=== PATIENT | female | born 1960 | race Caucasian/White ===

== ENCOUNTER 2021-06-07 02:34 | Day surgery (SDC) | payer BC, SELFPAY ==
[2021-05-24 15:54] VITALS: BMI 24.2
--- NOTE | 2021-06-06 13:00 | P.PNAN_ITS ---
Anes - Initial Pre Proc Eval Procedure: Operation Date: 06/07/21 10:30 Proposed Procedures p Esophagogastroduodenoscopy - Jose Hickey MD Date/Time: 06/06/21 13:00 Surgeon: Jose Hickey MD Pre Op Diagnosis: dysphagia Patient Data Age: 60 Gender: F Height: 1.57 m Weight: 60 kg Allergies Allergy/AdvReac Type Severity Reaction Status Date / Time codeine AdvReac Severe GI UPSET Verified 06/07/21 09:31 Home Medications Medication Instructions Recorded Confirmed Type atorvastatin 80 mg tablet 80 mg PO DAILY 04/15/21 06/07/21 History levothyroxine 88 mcg capsule 88 mcg PO DAILY 04/15/21 06/07/21 History metoprolol succinate 50 mg 50 mg PO DAILY 04/15/21 06/07/21 History tablet,extended release 24 hr Patient hx anesthesia problems: none Family hx anesthesia problems: none Results Review: All pre-operative results and documents have been reviewed as part of the pre-operative evaluation. ON LICENSE OF [facility] Past Medical History Medical History (Updated 06/07/21 @ 10:08 by Jose Hickey MD) Coronary artery disease Dysphagia Femoral hernia Hypertension Seizure Thyroid disorder Surgical History Surgical History (Updated 06/06/21 @ 13:01 by Jordan Chambers DO) History of coronary artery stent placement stents x3, 01/2020, 05/2020 Hx of removal of ovary Family History Family History (Updated 04/15/21 @ 09:07 by Jannie Torres MA) Father Hypertension Cerebrovascular accident Mother Breast cancer Hypertension Depression Cerebrovascular accident Sibling Depression Other Depression Grandparent Breast cancer Cerebrovascular accident Social History Social History (Updated 04/15/21 @ 09:06 by Jannie Torres MA) Smoking packs per day: 1.5 Smoking cigarettes per day: 30.0 Years smoked: 13 Smoking pack-years: 19.50 Smoking status: Former smoker Tobacco type: cigarettes Alcohol intake: never Substance use: never Substance use type: does not use Living arrangements: with family Gender identity (if verbalized by the patient): Female Spiritual care concerns: No Agree to blood products: Yes Anes - Eval Final PreProcedure Day of Procedure 06/06/21 13:00 Patient weight: normal Heart: regular rate and rhythm Lungs: clear to auscultation and normal air movement Airway: Mallampati scale class II Neurological: alert and oriented Last oral intake: >/= 8 hours ASA classification: III Emergent: no Anesthetic plan: proceed Anesthesia type and monitoring: general GIVS and standard monitoring Results Review: All pre-operative results and documents have been reviewed as part of the pre-operative evaluation. Informed Consent: The patient's anesthetic plan and its attendant risks and benefits were discussed with the patient/family/POA. Questions were solicited and answers provided to the satisfaction of the patient/family/POA.
[2021-06-07 09:32] VITALS: BP 141/87; PULSE 66; RESP 17; TEMP 37; O2SAT 99; BMI 24.2
[2021-06-07] MEDS: LACTATED RINGERS 1,000 ML 150 ML IV CONT (09:51)
--- NOTE | 2021-06-07 10:08 | PM.HPGS ---
History of Present Illness History of Present Illness Consent: Risks, benefits, and alternatives have been discussed and questions answered. Patient agrees to proceed with procedure. Chief complaint: dysphagia Narrative: Shanae Meyer is a 60 year old female with dysphagia, never had egd Review of Systems Constitutional: Constitutional: Denies headache(s) and Denies weakness Eyes: Eyes: Denies blurry vision ENT: Reports Normal hearing present, Denies headache(s) and Denies neck pain Cardiovascular: Cardiovascular: Denies chest pain and Denies dyspnea Respiratory: Respiratory: Denies dyspnea Gastrointestinal: Gastrointestinal: Reports no additional gastrointestinal complaints Genitourinary: Genitourinary: Denies dysuria Musculoskeletal: Musculoskeletal: Denies neck pain Integumentary/Breasts: Skin/Breast: Denies dry skin Neurologic: Reports Normal hearing present, Denies headache(s) and Denies weakness Psychiatric: Psychiatric: Denies anxiety Endocrine: Endocrine: Denies change in body appearance Hematologic/Lymphatic: Hematologic/Lymphatic: Denies easy bleeding Allergic/Immunologic: Allergic/Immunologic: Denies urticaria PMFSH Past Medical History Medical History (Updated 06/07/21 @ 10:08 by Jose Hickey MD) Coronary artery disease Dysphagia Femoral hernia Hypertension Seizure Thyroid disorder Surgical History Surgical History (Updated 06/06/21 @ 13:01 by Jordan Chambers DO) History of coronary artery stent placement stents x3, 01/2020, 05/2020 Hx of removal of ovary Family History Family History (Updated 04/15/21 @ 09:07 by Jannie Torres MA) Father Hypertension Cerebrovascular accident Mother Breast cancer Hypertension Depression Cerebrovascular accident Sibling Depression Other Depression Grandparent Breast cancer Cerebrovascular accident Social History Social History (Updated 04/15/21 @ 09:06 by Jannie Torres MA) Smoking packs per day: 1.5 Smoking cigarettes per day: 30.0 Years smoked: 13 Smoking pack-years: 19.50 Smoking status: Former smoker Tobacco type: cigarettes Alcohol intake: never Substance use: never Substance use type: does not use Living arrangements: with family Gender identity (if verbalized by the patient): Female Spiritual care concerns: No Agree to blood products: Yes Meds Home Medications and Allergies Home Medications Medication Instructions Recorded Confirmed Type atorvastatin 80 mg tablet 80 mg PO DAILY 04/15/21 06/07/21 History levothyroxine 88 mcg capsule 88 mcg PO DAILY 04/15/21 06/07/21 History metoprolol succinate 50 mg 50 mg PO DAILY 04/15/21 06/07/21 History tablet,extended release 24 hr Allergies Allergy/AdvReac Type Severity Reaction Status Date / Time codeine AdvReac Severe GI UPSET Verified 06/07/21 09:31 Vital Signs Vital Signs - 24 hr 06/07/21 09:32 Temperature 98.6 F Pulse Rate 66 Respiratory Rate 17 Blood Pressure 141/87 H Pulse Oximetry 99 Exam Const: General: comfortable and no acute distress HENMT: General nose exam: Normal nares present Eyes: General: appearance normal, both eyes and all related structures Neck: Neck: no JVD Resp: Auscultation: clear to auscultation bilaterally Cardio: Rate: regular rate Rhythm: regular rhythm GI: Inspection: non-distended GI Palp: Yes Soft to palpation Skin: General skin exam: normal color Neuro: General: gait normal Speech: normal speech Extrem: General: normal to inspection Psych: Mental Status: mental status grossly normal Assessment and Plan Assessment and plan (1) Dysphagia: Code(s): R13.10 - Dysphagia, unspecified Status: Acute Assessment and Plan: egd, will assess if needs dilation
[2021-06-07 10:31] VITALS: BP 101/62; PULSE 66; RESP 16; O2SAT 98
[2021-06-07 10:41] VITALS: BP 114/74; PULSE 68; RESP 18; O2SAT 99
[2021-06-07 10:51] VITALS: BP 134/82; PULSE 66; RESP 20; O2SAT 99
== END 2021-06-07 11:30 | disposition home or self-care (01) ==
PROVIDERS: PCP Nurse Practitioner; Visit Provider Internal Medicine Gastroenterology
PROC: 0DJ08ZZ Inspection of Upper Intestinal Tract, Via Natural or Artificial Opening Endoscopic (ICD-10-PCS; CPT 43235; principal; 2021-06-07 10:30)
DX: K22.2 Esophageal obstruction (principal); K21.00 Gastro-esophageal reflux disease with esophagitis, without bleeding; K29.70 Gastritis, unspecified, without bleeding; I10 Essential (primary) hypertension; I25.10 Atherosclerotic heart disease of native coronary artery without angina pectoris; E07.9 Disorder of thyroid, unspecified; Z95.5 Presence of coronary angioplasty implant and graft; Z87.891 Personal history of nicotine dependence
CPT/HCPCS: 43249; 43239; 87081; 88305; C1726; J2704; J7120

== ENCOUNTER 2022-02-15 11:35 | Emergency (ER) | payer BC, SELFPAY ==
--- NOTE | 2022-02-15 11:38 | ED.URI ---
HPI - URI/Sore Throat General Chief Complaint: Ear Stated Complaint: EAR/JAW PRESSURE/DRAINAGE/COUGH Time Seen by Provider: 02/15/22 11:38 Source: patient, RN notes reviewed and old records reviewed Mode of arrival: ambulatory Limitations: no limitations History of Present Illness HPI Narrative: 61-year-old female presents to the [facility] with complaints ear pain and pressure, sinus drainage and cough for 1-2 weeks. Has tried multiple [id number] products. Uses Flonase daily. Denies fevers. No chest pain or shortness of breath. Denies abdominal pain, nausea vomiting or diarrhea. MD elicited complaint: cough, rhinorrhea, nasal congestion and sinus pain Pertinent past history: sinusitis and seasonal allergies Related Data Home Medications Medication Instructions Recorded Confirmed atorvastatin 80 mg tablet 80 mg PO DAILY 04/15/21 02/15/22 levothyroxine 88 mcg capsule 88 mcg PO DAILY 04/15/21 02/15/22 metoprolol succinate 50 mg 50 mg PO DAILY 04/15/21 02/15/22 tablet,extended release 24 hr cyclosporine 0.05 % eye drops in a drp 02/15/22 dropperette (Restasis) Allergies Allergy/AdvReac Type Severity Reaction Status Date / Time codeine AdvReac Severe GI UPSET Verified 08/29/21 11:16 Review of Systems Review of Systems: All systems reviewed & are unremarkable except as noted in HPI and below Constitutional: Constitutional: Reports no additional constitutional complaints, Denies chills and Denies fever(s) Eyes: Eyes: Reports no additional eye complaints ENT: Reports as per HPI, Reports otalgia, Reports nasal congestion and Reports nasal discharge Cardiovascular: Cardiovascular: Reports no additional cardiovascular complaints Respiratory: Respiratory: Reports no additional respiratory complaints Gastrointestinal: Gastrointestinal: Reports no additional gastrointestinal complaints Musculoskeletal: Musculoskeletal: Reports no additional musculoskeletal complaints Integumentary/Breasts: Skin/Breast: Reports system reviewed and no additional complaints, except as docu Neurologic: Reports system reviewed and no additional complaints, except as documented Psychiatric: Psychiatric: Reports no additional psychiatric complaints Allergic/Immunologic: Allergic/Immunologic: Reports no additional allergic/immunologic complaints [facility] Past Medical History Medical History (Updated 02/15/22 @ 12:10 by Sia Lewis, FRONT END ARCHITECT) Colon cancer screening Coronary artery disease Dysphagia Esophageal ring Femoral hernia GERD with esophagitis Hypertension Seizure Thyroid disorder Surgical History Surgical History History of coronary artery stent placement stents x3, 01/2020, 05/2020 Hx of removal of ovary Family History Family History Father Hypertension Cerebrovascular accident Mother Breast cancer Hypertension Depression Cerebrovascular accident Sibling Depression Other Depression Grandparent Breast cancer Cerebrovascular accident Social History Social History Smoking packs per day: 1.5 Smoking cigarettes per day: 30.0 Years smoked: 13 Smoking pack-years: 19.50 Tobacco type: cigarettes Alcohol intake: never Substance use: never Substance use type: does not use Gender identity (if verbalized by the patient): Female Spiritual care concerns: No Agree to blood products: Yes Comments At the time of my signature, I reviewed and agree with the nursing past medical, surgical, social, and family history. There is no relevant family history pertinent to the patient complaint. Exam Const: General: healthy appearing, no acute distress, alert and well nourished Nutritional Appearance: well nourished Orientation/consciousness: patient oriented x3 Limitations: no limitations HENMT: Head: normal to inspectio
[2022-02-15 11:46] VITALS: BP 146/105; PULSE 66; RESP 16; TEMP 35.7; O2SAT 100
== END 2022-02-15 12:21 | disposition home or self-care (01) ==
PROVIDERS: Emergency Provider Nurse Practitioner; PCP Nurse Practitioner
DX: J32.9 Chronic sinusitis, unspecified (principal); J40 Bronchitis, not specified as acute or chronic; F17.210 Nicotine dependence, cigarettes, uncomplicated; K21.00 Gastro-esophageal reflux disease with esophagitis, without bleeding; I10 Essential (primary) hypertension; I25.10 Atherosclerotic heart disease of native coronary artery without angina pectoris; E03.9 Hypothyroidism, unspecified; E05.00 Thyrotoxicosis with diffuse goiter without thyrotoxic crisis or storm
CPT/HCPCS: 99213; G0463

== ENCOUNTER 2022-06-27 00:35 | Day surgery (SDC) | payer BC, SELFPAY ==
[2022-06-16 11:03] VITALS: BMI 25.2
[2022-06-27 10:10] VITALS: BP 151/91; PULSE 74; RESP 16; TEMP 36.2; O2SAT 100; BMI 24.7
[2022-06-27] MEDS: LACTATED RINGERS 1,000 ML 150 ML IV CONT (10:32)
--- NOTE | 2022-06-27 10:33 | WPDHPUPDATE1 ---
History and Physical Update Update Date/Time: 06/27/22 10:33 History and Physical has been reviewed, including an updated exam of the patient. There are NO changes in the patient's condition. Risks, benefits, and alternatives have been discussed and questions answered. Patient agrees to proceed with procedure.
--- NOTE | 2022-06-27 10:37 | WPDANESEPPF ---
Anes - Initial Pre Proc Eval Procedure: Operation Date: 06/27/22 11:30 Proposed Procedures p Esophagogastroduodenoscopy - Jose Hickey MD Date/Time: 06/27/22 10:37 Surgeon: Jose Hickey MD Pre Op Diagnosis: dysphagia Patient Data Age: 61 Gender: F Height: 1.57 m Weight: 61.5 kg Last Vital Signs Temp 97.1 F L 06/27/22 10:10 Pulse 74 06/27/22 10:10 Resp 16 06/27/22 10:10 BP 151/91 H 06/27/22 10:10 Pulse Ox 100 06/27/22 10:10 O2 Del Method Room Air 06/27/22 10:10 Allergies Allergy/AdvReac Type Severity Reaction Status Date / Time codeine AdvReac Severe GI UPSET Verified 06/27/22 10:18 Home Medications Medication Instructions Recorded Confirmed Type atorvastatin 80 mg tablet 80 mg PO DAILY 04/15/21 06/27/22 History levothyroxine 88 mcg capsule 88 mcg PO DAILY 04/15/21 06/27/22 History metoprolol succinate 50 mg 50 mg PO DAILY 04/15/21 06/27/22 History tablet,extended release 24 hr albuterol sulfate 90 mcg/actuation 2 puff inhalation QID PRN 02/15/22 06/27/22 Rx aerosol inhaler shortness of breath or wheezing #6.7 grams cyclosporine 0.05 % eye drops in a 1 drp EACH EYE BID 02/15/22 06/27/22 History dropperette (Restasis) famotidine 20 mg tablet 20 mg PO Q12H 1 month #60 tabs 06/06/22 06/27/22 Rx melatonin 5 mg tablet 5 mg PO HS 06/16/22 06/27/22 History Patient hx anesthesia problems: none Family hx anesthesia problems: none Results Review: All pre-operative results and documents have been reviewed as part of the pre-operative evaluation. [facility] Past Medical History Medical History Colon cancer screening Coronary artery disease Dysphagia Esophageal ring Femoral hernia GERD with esophagitis Hypertension Seizure Thyroid disorder Surgical History Surgical History History of coronary artery stent placement stents x3, 01/2020, 05/2020 Hx of removal of ovary Family History Family History Father Hypertension Cerebrovascular accident Mother Breast cancer Hypertension Depression Cerebrovascular accident Sibling Depression Other Depression Grandparent Breast cancer Cerebrovascular accident Social History Social History Smoking packs per day: 1.5 Smoking cigarettes per day: 30.0 Years smoked: 13 Smoking pack-years: 19.50 Smoking status: Former smoker Tobacco type: cigarettes Alcohol intake: never Substance use: never Substance use type: does not use Living arrangements: with family Gender identity (if verbalized by the patient): Female Spiritual care concerns: No Agree to blood products: Yes Anes - Eval Final PreProcedure Day of Procedure 06/27/22 10:37 Patient weight: normal Heart: regular rate and rhythm Lungs: clear to auscultation Airway: Mallampati scale class II Neurological: alert and oriented Last oral intake: >/= 8 hours ASA classification: III Emergent: no Anesthetic plan: proceed Anesthesia type and monitoring: general GIVS and standard monitoring Results Review: All pre-operative results and documents have been reviewed as part of the pre-operative evaluation. Informed Consent: The patient's anesthetic plan and its attendant risks and benefits were discussed with the patient/family/POA. Questions were solicited and answers provided to the satisfaction of the patient/family/POA.
[2022-06-27] MEDS: BENZOCAINE (*SP) 60 ML SPRAY CAN (HURRICAINE) 1 SPRAY MUCOUS MEM (10:42)
[2022-06-27 10:54] VITALS: BP 100/60; PULSE 71; RESP 20; O2SAT 97
[2022-06-27 11:04] VITALS: BP 108/73; PULSE 70; RESP 20; O2SAT 97
[2022-06-27 11:14] VITALS: BP 126/88; PULSE 67; RESP 20; O2SAT 97
== END 2022-06-27 11:29 | disposition home or self-care (01) ==
PROVIDERS: PCP Nurse Practitioner; Visit Provider Internal Medicine Gastroenterology
PROC: 0DJ08ZZ Inspection of Upper Intestinal Tract, Via Natural or Artificial Opening Endoscopic (ICD-10-PCS; CPT 43235; principal; 2022-06-27 11:30)
DX: K22.2 Esophageal obstruction (principal); K44.9 Diaphragmatic hernia without obstruction or gangrene; K29.70 Gastritis, unspecified, without bleeding; K21.9 Gastro-esophageal reflux disease without esophagitis; I25.10 Atherosclerotic heart disease of native coronary artery without angina pectoris; I10 Essential (primary) hypertension; E07.9 Disorder of thyroid, unspecified; Z79.51 Long term (current) use of inhaled steroids; Z95.5 Presence of coronary angioplasty implant and graft; Z87.891 Personal history of nicotine dependence
CPT/HCPCS: 43249; 43239; 88305; J2704; J7120

== ENCOUNTER 2023-04-08 00:53 | Observation (INO) | payer BC, SELFPAY ==
[2023-04-08] VITALS (9 sets, daily range): BP systolic 128–171; BP diastolic 78–90; PULSE 54–78; RESP 13–18; TEMP 36.4–36.7; O2SAT 95–100; BMI 24.7
--- NOTE | ~2023-04-08 | CT_ITS ---
Non-contrast Head CT History: Syncope Technique: Axial non-contrast imaging of the brain was performed. Dose reduction technique was used on this scan by utilizing automated exposure control and iterative reconstruction technique. The dose -length product (DLP) was 605.33 mGy-cm. Findings: There is no evidence of intracranial hemorrhage, mass lesion, or acute infarct. Brain par enchyma appears normal. The ventricles and subarachnoid spaces are normal in size. The calvarium ap pears normal. The visualized paranasal sinuses and mastoid air cells are clear. Impression: No significant abnormality seen. Reviewed, dictated and finalized at location . [employer]OP[employer] Impression: No significant abnormality seen.
--- NOTE | ~2023-04-08 | XR_ITS ---
Portable chest x-ray Comparison: None Clinical History: Syncope Findings: Lungs are clear, without focal consolidation or pleural effusion. Cardiomediastinal silho uette is unremarkable. Bones and soft tissues are unremarkable. Impression: Normal chest. Reviewed, dictated and finalized at location . [facility] Impression: Normal chest.
--- NOTE | 2023-04-08 01:21 | ECG_ITS ---
Measurements Intervals [place] Rate: 61 P: 57 DC: 145 QRS: 28 QRSD: 82 T: 48 QT: 386 QTc: 389 Interpretive Statements SINUS RHYTHM NONSPECIFIC ST AND T-WAVE ABNORMALITIES ABNORMAL ECG NO PREVIOUS ECG AVAILABLE FOR COMPARISON Electronically Signed On 04-08-2023 10:39:01 HYPERBARIC NURSE by Mario Whittington M.D.
[2023-04-08 01:46] LABS: Basophils Percent Auto 0.3 % (0.2-1.2); Eosinophils Absolute Auto 0.1 K/mm3 (0-0.3); Eosinophils Percent Auto 2.1 % (0-4.4); Hematocrit 41.2 % (37.0-47.0); Hemoglobin 13.5 g/dL (12.0-15.0); Immature Granulocyte Absolute 0.11 K/mm3 (0.00-0.031); Immature Granulocyte Percent A 1.8 % (0-0.5); Lymphocytes Absolute Auto 1.38 K/mm3 (0.9-3.2); Lymphocytes Percent Auto 22.2 % (18.3-44.2); Mean Corpuscular HGB Conc 32.8 g/dl (32-36); Mean Corpuscular Hemoglobin 29.5 pg (26-34); Mean Platelet Volume 11.2 fl (7.4-10.4); Monocytes Absolute Auto 0.7 K/mm3 (0.1-0.6); Monocytes Percent Auto 11.3 % (2.6-8.5); Neutrophils Absolute Auto 3.9 K/mm3 (1.3-6.7); Neutrophils Percent Auto 62.3 % (45.5-73.1); Platelet Count Result 166 k/mm3 (150-375); Red Blood Count 4.58 M/mm3 (4.2-5.4); Red Cell Distribution Width 12.3 % (11.5-14.5); White Blood Count 6.2 K/mm3 (4.5-10.0)
[2023-04-08 02:00] LABS: D Dimer 0.52 ug/mL (<0.48)
[2023-04-08 02:03] LABS: Alanine Aminotransferase 52 U/L (6-35); Albumin Level 4.4 g/dL (3.5-5.1); Alkaline Phosphatase 78 U/L (38-126); Anion Gap 8 mmol/L (8-16); Aspartate Amino Transferase 45 U/L (14-36); Bilirubin,Total 0.6 mg/dL (0.2-1.3); Blood Urea Nitrogen 17 mg/dL (7-17); Calcium 9.5 mg/dL (8.4-10.2); Carbon Dioxide 26 mmol/L (22-30); Chloride 107 mmol/L (98-107); Estimated CRCL calculation 66 ml/min; Estimated Glomerular Filt Rate > 60; Glucose 118 mg/dL (65-110); Potassium 4.2 mmol/L (3.4-5.0); Sodium 141 mmol/L (137-145)
[2023-04-08 02:09] LABS: Troponin I 0.014 ng/mL (0.000-0.034)
--- NOTE | 2023-04-08 03:05 | ED.SYNCOPE ---
HPI - Syncope General Chief Complaint: Syncope Stated Complaint: jaw pain, headache, syncope Time Seen by Provider: 04/08/23 01:22 History of Present Illness HPI narrative: patient presents to the emergency department from home with her . She has had left-sided jaw pain that radiates into her left chest. pain intermittent for the past few days. She has a significant cardiac history with 3 stents placed. Also significant family history, her sister from heart attack 4 years ago. Cardiology follows her closely and has been over a year since her last stent was placed. Denies shortness of breath. Tonight pain was severe and she laid on the couch near her bedroom. When she was coming back to her bed she had a syncopal episode. Patient feeling better although still has left-sided jaw pain. Patient states she cannot have nitro because it dropped her pressure severely Related Data Home Medications Medication Instructions Recorded Confirmed atorvastatin 80 mg tablet 80 mg PO DAILY 04/15/21 06/27/22 levothyroxine 88 mcg capsule 88 mcg PO DAILY 04/15/21 06/27/22 metoprolol succinate 50 mg 50 mg PO DAILY 04/15/21 06/27/22 tablet,extended release 24 hr cyclosporine 0.05 % eye drops in a 1 drp EACH EYE BID 02/15/22 06/27/22 dropperette (Restasis) melatonin 5 mg tablet 5 mg PO HS 06/16/22 06/27/22 Allergies Allergy/AdvReac Type Severity Reaction Status Date / Time codeine AdvReac Severe GI UPSET Verified 04/08/23 01:40 Review of Systems Review of Systems: negative except as documented in the HPI [facility] Past Medical History Medical History Colon cancer screening Coronary artery disease Dysphagia Esophageal ring Femoral hernia GERD with esophagitis Hypertension Seizure Thyroid disorder Surgical History Surgical History History of coronary artery stent placement stents x3, 01/2020, 05/2020 Hx of removal of ovary Family History Family History Father Hypertension Cerebrovascular accident Mother Breast cancer Hypertension Depression Cerebrovascular accident Sibling Depression Other Depression Grandparent Breast cancer Cerebrovascular accident Social History Social History (System 08/05/22 @ 09:08 by Mitch Molina) Smoking packs per day: 1.5 Smoking cigarettes per day: 30.0 Years smoked: 13 Smoking pack-years: 19.50 Smoking status: Former smoker Tobacco type: cigarettes Alcohol intake: never Substance use: never Substance use type: does not use Living arrangements: with family Gender identity (if verbalized by the patient): Female Spiritual care concerns: No Agree to blood products: Yes Exam Narrative: GENERAL: Well-appearing, well-nourished, and in no acute distress. HEAD: Normocephalic, atraumatic. EYES: PERRLA and EOMI. ENT: Nares clear, no rhinorrhea or epistaxis. Mucous membranes moist. NECK: Supple. CHEST: Clear to auscultation. No respiratory distress. HEART: Regular rate and rhythm. ABDOMEN: Soft, nontender, nondistended. EXTREMITIES: Normal range of motion. No edema. SKIN: Warm, dry, no rash. NEURO: No focal deficits. Alert and oriented x3. PSYCH: Normal mood and affect. Course Course Emergency Course: differential diagnosis includes but not limited to CAD, unstable angina, PE, dissection, viral illness EKG ordered read sinus rhythm rate [address] depression in lateral leads D-dimer slightly elevated but age adjusted is normal CT head negative for hemorrhage Vital Signs Vital signs: Vital Signs Temperature 36.4 C L 04/08/23 01:24 Pulse Rate 59 L 04/08/23 01:24 Respiratory Rate 18 04/08/23 01:24 Blood Pressure 142/82 H 04/08/23 01:24 Pulse Oximetry 96 04/08/23 01:24 Temperature 36.4 C L 04/08/23 01:24 Pulse Rate 71 04/08/23 05:10
[2023-04-08] MEDS: ASPIRIN 325 MG TABLET PO (03:19)
[2023-04-08 03:31] LABS: Influenza A QL RT-PCR Negative (Negative); Influenza B QL RT-PCR Negative (Negative); RSV RNA, RT-PCR Negative (Negative); SARS-CoV-2 RNA PCR Negative (Negative)
[2023-04-08 05:38] LABS: Troponin I < 0.012 ng/mL (0.000-0.034)
--- NOTE | 2023-04-08 06:21 | PM.IMHP ---
H&P: HPI History of Present Illness Date/Time: 04/08/23 06:21 Chief Complaint: left jaw pain/left sided chest pain Narrative: ?patient distally wound with a significant cardiac history, has 3 cardiac stents, presents to the emergency department accompanied by for evaluation of left-sided jaw pain that started 4 days ago, sharp, 8/10 in severity, continuous, radiated to the neck and upper chest, no associated facial swelling, nausea vomiting, diaphoresis, or shortness on breath, not associated with exertion. she stated that the pain was severe and she passed out before coming to the ER. She has significant family history, her sister from heart attack 4 years ago.? Cardiology follows her closely and has been over a year since her last stent was placed.? Denies shortness of breath.? Tonight pain was severe and she laid on the couch near her bedroom.? When she was coming back to her bed she had a syncopal episode.? Patient feeling better although still has left-sided jaw pain.? Patient states she cannot have nitro because it dropped her pressure severely she was evaluated in the undefined to home EKG changes which include Q-wave in 3 on flat T-waves on V2 V3 V4. initial troponin was borderline elevated. repeat troponin was a diet and I was consulted to admit this patient. patient had negative chest x-ray and CT scan of the head. patient feels so much better, however the pain at 10/10 currently Review of Systems Review of Systems: All systems reviewed & are unremarkable except as noted in HPI and below PMFSH Past Medical History Medical History Colon cancer screening Coronary artery disease Dysphagia Esophageal ring Femoral hernia GERD with esophagitis Hypertension Seizure Thyroid disorder Surgical History Surgical History History of coronary artery stent placement stents x3, 01/2020, 05/2020 Hx of removal of ovary Family History Family History Father Hypertension Cerebrovascular accident Mother Breast cancer Hypertension Depression Cerebrovascular accident Sibling Depression Other Depression Grandparent Breast cancer Cerebrovascular accident Social History Social History (System 08/05/22 @ 09:08 by Mitch Molina) Smoking packs per day: 1.5 Smoking cigarettes per day: 30.0 Years smoked: 13 Smoking pack-years: 19.50 Smoking status: Former smoker Tobacco type: cigarettes Alcohol intake: never Substance use: never Substance use type: does not use Living arrangements: with family Gender identity (if verbalized by the patient): Female Spiritual care concerns: No Agree to blood products: Yes Meds Home Medications and Allergies Home Medications Medication Instructions Recorded Confirmed Type atorvastatin 80 mg tablet 80 mg PO DAILY 04/15/21 06/27/22 History levothyroxine 88 mcg capsule 88 mcg PO DAILY 04/15/21 06/27/22 History metoprolol succinate 50 mg 50 mg PO DAILY 04/15/21 06/27/22 History tablet,extended release 24 hr albuterol sulfate 90 mcg/actuation 2 puff inhalation QID PRN 02/15/22 06/27/22 Rx aerosol inhaler shortness of breath or wheezing #6.7 grams cyclosporine 0.05 % eye drops in a 1 drp EACH EYE BID 02/15/22 06/27/22 History dropperette (Restasis) famotidine 20 mg tablet 20 mg PO Q12H 1 month #60 tabs 06/06/22 06/27/22 Rx melatonin 5 mg tablet 5 mg PO HS 06/16/22 06/27/22 History Allergies Allergy/AdvReac Type Severity Reaction Status Date / Time codeine AdvReac Severe GI UPSET Verified 04/08/23 01:40 Vital Signs Vital Signs - 24 hr 04/08/23 01:24 04/08/23 01:24 04/08/23 03:23 Temperature 97.5 F L Pulse Rate 59 L 54 L 68 Respiratory Rate 18 15 Blood Pressure 142/82 H 171/82 H Pulse Oximetry 96 97 04/08/23 05:10 Temperature Pulse Rate 71 Respirato
[2023-04-08 06:59] LABS: Basophils Percent Auto 0.2 % (0.2-1.2); Eosinophils Percent Auto 0.5 % (0-4.4); Hematocrit 43.9 % (37.0-47.0); Hemoglobin 14.3 g/dL (12.0-15.0); Immature Granulocyte Absolute 0.09 K/mm3 (0.00-0.031); Immature Granulocyte Percent A 1.5 % (0-0.5); Lymphocytes Absolute Auto 1.38 K/mm3 (0.9-3.2); Lymphocytes Percent Auto 22.3 % (18.3-44.2); Mean Corpuscular HGB Conc 32.6 g/dl (32-36); Mean Corpuscular Hemoglobin 29.4 pg (26-34); Mean Corpuscular Volume 90.1 fl (80-100); Mean Platelet Volume 10.9 fl (7.4-10.4); Monocytes Absolute Auto 0.5 K/mm3 (0.1-0.6); Monocytes Percent Auto 8.1 % (2.6-8.5); Neutrophils Absolute Auto 4.2 K/mm3 (1.3-6.7); Neutrophils Percent Auto 67.4 % (45.5-73.1); Platelet Count Result 176 k/mm3 (150-375); Red Blood Count 4.87 M/mm3 (4.2-5.4); Red Cell Distribution Width 12.4 % (11.5-14.5); White Blood Count 6.2 K/mm3 (4.5-10.0)
[2023-04-08 07:10] LABS: Anion Gap 10 mmol/L (8-16); Blood Urea Nitrogen 14 mg/dL (7-17); Calcium 9.8 mg/dL (8.4-10.2); Carbon Dioxide 26 mmol/L (22-30); Chloride 106 mmol/L (98-107); Estimated CRCL calculation 66 ml/min; Estimated Glomerular Filt Rate > 60; Glucose 110 mg/dL (65-110); Potassium 4.3 mmol/L (3.4-5.0); Sodium 142 mmol/L (137-145)
[2023-04-08 07:22] LABS: Troponin I < 0.012 ng/mL (0.000-0.034)
[2023-04-08] MEDS: ACETAMINOPHEN 325 MG TABLET 650 MG PO ×2 (08:40→14:06)
--- NOTE | 2023-04-08 09:02 | ECHO_ITS ---
Patient Info Name: Shanae Meyer Age: 62 years : 1960 Gender: Female Ht: 62 in Wt: 135 lbs BSA: 1.65 m2 HR: 62 bpm BP: 137 / 85 mmHg Heart Rhythm: Sinus Rhythm Technical Quality: Fair Exam Date: 04/08/2023 10:14 AM Exam Location: Echo Lab Patient Status: Outpatient Admit Date: 04/08/2023 Staff Ordering Physician: Daniele Garcia MD Baseboard Heating Installer: Trinidad Donald RDCS Attending Provider: Daniele Garcia MD Exam Type: CA echo dop color flow w con Study Info Indications - Prior history of CAD with stents R07.9 - Chest pain, unspecified Complete two-dimensional, color flow and Doppler transthoracic echocardiogram is performed with contrast to opacify the left ventricle and to improve the deliniation of the left ventricle endocardial borders. Contrast/Agitated Saline Contrast/Ag. Saline: Definity Amount: 2.00 ml Administered By: Trinidad Donald RDCS Existing IV Access: Yes Summary 1. Left ventricular chamber dimension is normal. 2. Left ventricular systolic function is normal, estimated at 65-70%. 3. There is mildly increased left ventricular wall thickness. 4. The left ventricular diastolic function is grade I diastolic dysfunction. 5. There is mild aortic valve sclerosis. 6. There is mild mitral valve regurgitation. 7. There is mild tricuspid valve regurgitation. Left Ventricle Left ventricular chamber dimension is normal. Left ventricular systolic function is normal, estimated at 65-70%. There is mildly increased left ventricular wall thickness. The left ventricular diastolic function is grade I diastolic dysfunction. Right Ventricle Right ventricular chamber dimension is normal. Right ventricular systolic function is normal. Left Atria Left atrial chamber dimension is normal. Right Atria Right atrial chamber dimension is normal. Atrial Septum Intact interatrial septum visualized by color flow imaging. Aortic Valve The aortic valve is probable trileaflet. There is mild aortic valve sclerosis. There is no aortic valve stenosis. There is trace aortic valve regurgitation. Pulmonic Valve The pulmonic valve is normal. There is no pulmonic valve stenosis. There is trace pulmonic regurgitation. Mitral Valve The mitral valve has normal leaflets. There is no mitral valve stenosis. There is mild mitral valve regurgitation. Tricuspid Valve The tricuspid valve leaflets are normal. There is no significant tricuspid valve stenosis. There is mild tricuspid valve regurgitation. No pulmonary hypertension, estimated pulmonary arterial systolic pressure is 34 mmHg. Pericardium/Pleural The pericardium appears epicardial fat pad. There is trivial pericardial effusion. Inferior Vena Cava Normal inferior vena cava with >50% collapse upon inspiration consistent with normal right atrial pressure, 8 mmHg. Aorta The aortic root size at the sinus of Valsalva is normal. Left Ventricular Outflow Tract Name Value Normal LVOT 2D LVOT Diameter 1.97 cm LVOT Doppler LVOT Peak Gradient 4 mmHg LVOT Mean Gradient 2 mmHg LVOT VTI 21.11 cm
[2023-04-08 09:20] LABS: Magnesium 2.4 mg/dL (1.6-2.3); Phosphorus 4.1 mg/dL (2.5-4.5)
--- NOTE | 2023-04-08 10:03 | PM.CNCAR ---
Assessment and Plan Assessment and plan (1) Syncope: Code(s): R55 - Syncope and collapse Status: Acute Assessment and Plan: May have passed out due to pain in vagal episode but I am not completely convinced that she had a true syncopal event. She does remember people talking to her while lying on the floor. Regardless, unlikely that this represents a significant arrhythmogenic event. I will check a 2D echocardiogram Doppler for evidence of structural heart disease. (2) Jaw pain: Code(s): R68.84 - Jaw pain Status: Acute Assessment and Plan: Possible dental abscess. Her jaw pain is reproducible by pushing on her mandible. This is noncardiac. Recommend that the hospitalists performed further workup regarding her jaw pain including possible Panorex (3) Chest pain: Qualifiers: Chest pain type: unspecified Qualified Code(s): R07.9 - Chest pain, unspecified Code(s): R07.9 - Chest pain, unspecified Status: Acute Assessment and Plan: Uncertain presentation. It is not like her previous anginal symptoms. Possibly related to hypertension. She simply states that she hurt from her upper chest to the top of her head. Highly unlikely to be cardiac in etiology (4) Hypertension: Code(s): I10 - Essential (primary) hypertension Status: Acute Assessment and Plan: Above goal (5) Coronary artery disease: Code(s): I25.10 - Atherosclerotic heart disease of [place] coronary artery without angina pectoris Status: Acute Assessment and Plan: At this point, I recommend she continue her metoprolol 50 mg daily, aspirin 81 mg p.o. daily and atorvastatin 80 mg daily. History of Present Illness History of Present Illness Consult date/time: 04/08/23 10:03 Requesting physician: Jane Randall MD Consult reason: chest pain Reason For Visit: syncopee,chest pain,left sided jaw pain Narrative: Reason for consultation: Syncope, jaw pain, chest pain Requesting provider: Dr. Randall Date of service 04/08/2023 History patient is a 62-year-old female who has a history of CAD and follows at [facility]. She does not feel like her current symptoms are similar to her previous cardiac discomfort or issues. During those episodes she would have significant shortness of breath. Patient states that starting on Thursday which is 2 days ago she started developed some left jaw pain. It hurts to chew. She states that it was mild. It persisted but last night upon going to bed and then shortly thereafter her symptoms became much worse. She felt as if her whole head was hurting as well as both sides of her neck as well as her upper chest. She described as severe pain and sharp. She went to the bathroom and ended up lying on the floor. The next thing she remembers is her daughter and family waking her up. She thinks she may have passed out because things ?got 5 he ?. And she felt cold at the time. She states she was in severe pain from her upper chest all way to the top of her head. She denies any fevers. She came to the hospital and she has a very mild nonspecific T-wave abnormality seen on EKG. Troponins are negative. Because of her past medical history and symptoms, Cardiology was consulted. She still has left jaw pain. Left jaw pain is worse upon palpation. She denies any paroxysmal nocturnal dyspnea, orthopnea, palpitations, shortness of breath, swelling or recent chest pain. Review of Systems Review of Systems: All systems reviewed & are unremarkable except as noted in HPI and below Constitutional: Constitutional: Denies body ache(s) Eyes: Eyes: Denies blurry vision ENT: Reports Normal hearing present Cardiovascular: Cardiovascular: Reports chest pain and Denies palpitations Respiratory: Respiratory: Denies hemoptysis Gastrointestinal: Gastrointestinal: Denies abdominal pain Genitourinary: Genitourinary: Denies hematuria
[2023-04-08] MEDS: PERFLUTREN LIPID MICROSPHERES 1.5 ML VIAL DILUTED TO 10 ML TOTAL VOLUME IV PUSH (10:32)
--- NOTE | 2023-04-08 10:37 | ADMGEN ---
This patient, Shanae Meyer, was admitted to 3 [facility] Surg Room 322-01. Patient/family oriented to hospital policies and general routines including ID bracelet, bed and alarms, visiting hours, pain management, procedures, bathroom and other care routines, personal items, smoking policy, room service/diet, and visiting hours. Information on how to activate the Rapid Response Team has been discussed. Patient/Family are encouraged to report perceived risks to care and to ask questions if they do not understand what they are told or what they should do. report from crys in er.
--- NOTE | 2023-04-08 16:50 | PM.DS ---
DS: Admitting Diagnosis Discharge Date 04/08/2023: Admitting Diagnosis Left-sided jaw pain Syncope DS: Discharge Diagnosis Discharge Diagnosis (1) Syncope: Code(s): R55 - Syncope and collapse Status: Acute (2) Jaw pain: Code(s): R68.84 - Jaw pain Status: Acute (3) Chest pain: Qualifiers: Chest pain type: unspecified Qualified Code(s): R07.9 - Chest pain, unspecified Code(s): R07.9 - Chest pain, unspecified Status: Acute (4) GERD with esophagitis: Code(s): K21.00 - Gastro-esophageal reflux disease with esophagitis, without bleeding Status: Acute (5) Dysphagia: Code(s): R13.10 - Dysphagia, unspecified Status: Acute (6) Hypertension: Code(s): I10 - Essential (primary) hypertension Status: Acute (7) Coronary artery disease: Code(s): I25.10 - Atherosclerotic heart disease of [place] coronary artery without angina pectoris Status: Acute DS: Summary Hospital Course Reason for hospitalization: Patient admitted with the left-sided jaw pain/left-sided chest pain with a syncopal episode Hospital Course: H&P: HPI History of Present Illness Date/Time: 04/08/23? 06:21 Chief Complaint: left jaw pain/left sided chest pain Narrative: ?patient? distally wound with a significant cardiac history, has 3 cardiac stents, presents to the emergency department accompanied by for evaluation of left-sided jaw pain that started 4 days ago, sharp, 8/10 in severity, continuous, radiated to the neck and upper chest, no associated facial swelling, nausea vomiting, diaphoresis, or shortness on breath, not associated with exertion. she stated that the pain was severe and she passed out before coming to the ER. She has? significant family history, her sister from heart attack 4 years ago.? Cardiology follows her closely and has been over a year since her last stent was placed.? Denies shortness of breath.? Tonight pain was severe and she laid on the couch near her bedroom.? When she was coming back to her bed she had a syncopal episode.? Patient feeling better although still has left-sided jaw pain.? Patient states she cannot have nitro because it dropped her pressure severely ?she was evaluated in the undefined to home EKG changes which include Q-wave in 3 on flat T-waves on V2 V3 V4.? initial troponin was borderline elevated.? repeat troponin was a diet and I was consulted to admit this patient.? patient had negative chest x-ray and CT scan of the head.? patient feels so much better, however the pain at 10 currently 04/08/2023: Patient admitted to [facility] with telemetry. Cardiac enzymes x3 were done which were negative. Given her cardiac history with cardiac stents in place, Cardiology consult was given. Cardiology evaluated the patient and ordered a 2D echo which showed preserved LV function at 65-70%. Cardiology ruled out any cardiac etiology of the left jaw pain. I spoke with the patient in detail and examined her pain site. She likely has origin in the tooth or cheek for her left jaw pain. I gave her option regarding ENT consult in the hospital or follow-up with dentist as an outpatient to be evaluated for possible dental infection/sepsis. She opted going to the dentist and she has appointment with dentist already scheduled on Thursday04/12/2023. I will give her a course of Augmentin 875 mg p.o. b.i.d. for 7 days to cover for any dental/cheek infection. She is strongly advised to follow-up with her PCP and dentist within a week or come back to the ER for evaluation if jaw pain worsens. Detailed discharge directions delivered to the patient by myself and my nursing staff, who verbalizes understanding and is very happy and satisfied with the plan. Patient has been advised to continue all medications as prescribed and advised, and f/u with PCP within 1 week. Patient is stable from medical standpoint to be discharged. Total time spent dur
--- NOTE | 2023-04-10 14:40 | IVDEFINITY ---
Prior to administration of IV Definity the patient was educated on the risks and benefits of the imaging enhancing agent including potential adverse side effects. The patient verbalized understanding. Allergies were verified. No exclusion criteria were identified and at least one of the following inclusion criteria were met: 1) physician request, 2) patient technically difficult to image (per the [place] [employer] guidelines of two or more segments not discernable within the apical view), or 3) questionable left ventricular function. ?
== END 2023-04-08 17:53 | disposition home or self-care (01) ==
LOC: ANHED 06:08 → ANH3MEDSUR 07:02
PROVIDERS: Admitting Provider Student in an Organized Health Care Education/Training Program; Emergency Provider Emergency Medicine; PCP Nurse Practitioner; Visit Provider Family Medicine
DX: R07.9 Chest pain, unspecified (principal); R55 Syncope and collapse; I25.10 Atherosclerotic heart disease of native coronary artery without angina pectoris; Z95.5 Presence of coronary angioplasty implant and graft; K21.9 Gastro-esophageal reflux disease without esophagitis; I10 Essential (primary) hypertension; I08.3 Combined rheumatic disorders of mitral, aortic and tricuspid valves; Z20.822 Contact with and (suspected) exposure to COVID-19; G40.909 Epilepsy, unspecified, not intractable, without status epilepticus; E07.9 Disorder of thyroid, unspecified; R94.31 Abnormal electrocardiogram [ECG] [EKG]; Z87.891 Personal history of nicotine dependence; Z79.51 Long term (current) use of inhaled steroids; Z79.899 Other long term (current) drug therapy; Z82.49 Family history of ischemic heart disease and other diseases of the circulatory system
CPT/HCPCS: 36415; 70450; 71045; 80048; 80053; 83735; 84100; 84484; 85025; 85380; 87637; 93005; 99285; A9270; C8929; G0378; Q9957

== ENCOUNTER 2023-06-06 10:06 | Emergency (ER) | payer BC, SELFPAY ==
[2023-06-06 10:20] VITALS: BP 130/95; PULSE 86; RESP 18; TEMP 36.4; O2SAT 98
--- NOTE | 2023-06-06 10:27 | ED.URI ---
HPI - URI/Sore Throat General Chief Complaint: Upper Respiratory Infection Stated Complaint: COUGH/SOB/EARACHE/JAW PAIN Time Seen by Provider: 06/06/23 10:28 Source: patient Mode of arrival: ambulatory Limitations: no limitations History of Present Illness HPI Narrative: 62-year-old female presents with complaint of nasal congestion, cough, sore throat, fatigue for 3 days. Afebrile. Patient states using albuterol inhaler. Does not have asthma but reports reactive airway with respiratory infections. Denies chest pain and shortness of breath. Had negative home COVID test. All systems reviewed and negative except as noted above. Related Data Home Medications Medication Instructions Recorded Confirmed atorvastatin 80 mg tablet 80 mg PO DAILY 04/15/21 04/08/23 levothyroxine 88 mcg capsule 88 mcg PO DAILY 04/15/21 04/08/23 metoprolol succinate 50 mg 50 mg PO DAILY 04/15/21 04/08/23 tablet,extended release 24 hr cyclosporine 0.05 % eye drops in a 1 drp EACH EYE BID 02/15/22 04/08/23 dropperette (Restasis) melatonin 5 mg tablet 5 mg PO HS 06/16/22 04/08/23 Allergies Allergy/AdvReac Type Severity Reaction Status Date / Time codeine AdvReac Severe GI UPSET Verified 04/08/23 10:46 Review of Systems Review of Systems: CONSTITUTIONAL: Denies fever, chills, or sweats. Reports fatigue. EYES: Denies visual changes, redness, or discharge. ENT: Reports rhinorrhea, congestion, sore throat, or otalgia. CARDIOVASCULAR: Denies chest pain, palpitations, or edema. RESPIRATORY: Reports cough. Denies dyspnea. GASTROINTESTINAL: Denies abdominal pain, nausea, vomiting, or diarrhea. GENITOURINARY: Denies dysuria or hematuria. SKIN: Denies rash or itching. MUSCULOSKELETAL: Denies back pain, joint pain, or myalgia. NEUROLOGIC: Denies headache, numbness, or weakness. PSYCHIATRIC: Denies anxiety or depression. All other systems reviewed are negative, except as documented in HPI. [facility] Past Medical History Medical History Colon cancer screening Coronary artery disease Dysphagia Esophageal ring Femoral hernia GERD with esophagitis Hypertension Seizure Thyroid disorder Surgical History Surgical History History of coronary artery stent placement stents x3, 01/2020, 05/2020 Hx of removal of ovary Family History Family History (Updated 04/08/23 @ 10:40 by Daksha Duke RN) Father Hypertension Cerebrovascular accident Mother Depression Breast cancer Hypertension Cerebrovascular accident Sibling Depression Heart attack Other Depression Grandparent Breast cancer Cerebrovascular accident Social History Social History Smoking packs per day: 1.5 Smoking cigarettes per day: 30.0 Years smoked: 13 Smoking pack-years: 19.50 Smoking status: Former smoker Tobacco type: cigarettes Alcohol intake: never Substance use: never Substance use type: does not use Do You Feel Safe in your Home?: Yes Lack of Transportation: No Lack of Food: Never True Current Housing: I Have Housing Concerned About Future Housing: No Difficulty Paying Gas/Electric Bills: No Difficulty Paying for Meds: No Currently Unemployed: No Education: Don't Know Difficulty w/ Childcare or Family Care: No Living arrangements: with family Gender identity (if verbalized by the patient): Female Spiritual care concerns: No Agree to blood products: Yes Comments At time of signature, agree with nursing past medical, surgical, social and family history. There is no relevant family history pertinent to the presenting complaint. Exam Narrative: GENERAL: This is a well-nourished, well-developed patient, in no apparent distress. HEAD: normocephalic, atraumatic. EYES: PERRL. Sclera clear/white. Vision is grossly intact. EARS: Asset Coordinator
== END 2023-06-06 10:55 | disposition home or self-care (01) ==
PROVIDERS: Emergency Provider Nurse Practitioner Family; PCP Nurse Practitioner
DX: J06.9 Acute upper respiratory infection, unspecified (principal); Z87.891 Personal history of nicotine dependence; I25.10 Atherosclerotic heart disease of native coronary artery without angina pectoris; K21.00 Gastro-esophageal reflux disease with esophagitis, without bleeding; I10 Essential (primary) hypertension; Z95.5 Presence of coronary angioplasty implant and graft
CPT/HCPCS: 87081; 87804; 87880; 99213; G0463